=== PATIENT | female | born 2000 | race Caucasian/White ===

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

== ENCOUNTER 2022-11-09 19:55 | Emergency (ER) | payer OTHER ==
--- OUTSIDE RECORDS SUMMARY | 2022-11-09 19:57 | XMS REPORT | Continuity of Care Document ---
:2000 Author Organization [facility] t Address Replaced by [facility] [place] [address] Care Team Providers Name Role Phone Ronan Mitchell Aron Primary Care Physician Rochelle Basilio Attending Clinician Unavailable Juan Thomas MD Attending Clinician Robert Tong MD Attending Clinician ROBERT TONG Attending Clinician Unavailable JUAN THOMAS Attending Clinician Unavailable Doctor Unassigned, [place] Attending Clinician Unavailable Abraham Bean MD Attending Clinician ABRAHAM BEAN Attending Clinician Unavailable JUAN THOMAS Admitting Clinician Unavailable Payers Payer Name Policy Type Policy Number Effective Date Expiration Date [facility] [id number] 2020 [facility] [employer] 00:00:00 [employer] [facility] Problems Condition Condition Condition Status Onset Resolution Last Treating Co mments Source Name Details Category Date Date Treatment Clinician Date Brain cyst Brain cyst Disease Active 2020-10 U nivers 11-18 ity of 00:00: [place] 00 Medical Branch 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 [place] of headache, [place], [place] not s, not intractabl intractabl e e 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, Spiri t bilateral - [facility] Allergies, Adverse Reactions, Alerts Allergy Allergy Status Severity Reaction(s) Onset Inactive Treating Comm ents Source Name Type Date Date Clinician NO KNOWN Drug Active Univers ALLERGIE Class ity of S [facility] Social History Social Habit Start Date Stop Date Quantity Comments Source History of Common Spirit - Tobacco Use [facility] Sex Assigned At Common Sp nadeem - [facility] Exposure to Not sure [facility] SARS-CoV-2 [facility] (event) [place] Alcohol intake 2021-10-16 2021-10-16 Ex-drinker [facility] 00:00:00 00:00:00 (finding) [facility] Tobacco use and 2021-06-15 2021-06-15 Current user Univers ity of exposure 00:00:00 00:00:00 [facility] Smoking Status Start Date Stop Date Source Never Smoker [facility] Medications Ordered Filled Start Stop Current Ordering Indication Dosage Frequency Signature Comments Components Source Medication Medication Date Date Medication? Clinician (SIG) Name Name Rodrigo- Yes [id number] 1{capsu Take 1 Univers Acetaminoph 5-13 le} capsule by it y of en-Caff 00:00: mouth 2 [place] (FIORICET) 00 (two) Medical 50-300-40 times Branch mg per daily as capsule needed for Pain (scale 4-6). FIORICET 2020-10 Yes [id number] 1{capsu Take 1 Univers 50-300-40 2-30 le} capsule by ity of mg per 00:00: mouth 2 [place] capsule 00 (two) Medical times Branch daily as needed for Pain (scale 4-6). FIORICET 2020-10- No [id number] 1{capsu Take 1 Univers 50-300-40 2-30 05-13 le} capsule by ity of mg per 00:00: 00:00 mouth 2 [place] capsule 00 :00 (two) Medical times Branch daily as needed for Pain (scale 4-6). amitriptyli 2020-10 Yes 10mg Take 1 Univers ne 10 mg 0-26 tablet by ity of tablet 00:00: mouth at [place] 00 bedtime. Medical Branch Butalbital- 2020-10 Yes [id number] 1{capsu Take 1 Univers Acetaminoph 0-26 le} capsule by it y of en-Caff 00:00: mouth 2 [place] (FIORICET) 00 (two) Medical 50-300-40 times Branch mg per daily as capsule needed for Pain (scale 4-6). amitriptyli 2020-10 Yes 10mg Take 1 Univers ne 10 mg 0-26 tablet by ity of tablet 00:00: mouth at [place] 00 bedtime. Medical Branch amitriptyli 2020-10 Yes [id number] 10mg Take 1 Univers ne 10 mg 0-26 tablet by ity of tablet 00:00: mouth at [place] [address] bedtime. Medical Branch Butalbital- 2020-10- No [id number] 1{capsu Take 1 Univers Acetaminoph 0-26 12-24 le} capsule by i ty of en-Caff 00:00: 00:00 mouth 2 [place] (FIORICET) 00 :00 (two) Medical 50-300-40 times Branch mg per daily as capsule needed for Pain (scale 4-6). Drospirenon Drospirenon 2019-10 No 1{table QD Drospireno Common e-Ethinyl e-Ethinyl 2-16 t} ne-Ethinyl Spirit Estradiol Estradiol 00:00: Estradiol - [facility] 3-0.02 MG 3-0.02 MG 00 3-0.02 MG [facility] Loryna Loryna No Loryna 3-0.02 MG 3-0.02 MG 3-0.02 MG Vital Signs Vital Name Observation Time Observation Value Comments Source Systolic blood 2021-10-10 16:47:00 115 mm[Hg] Univer sity of pressure [facility] Diastolic blood 2021-10-10 16:47:00 80 mm[Hg] Unive rsity of pressure [facility] Heart rate 2021-10-10 16:47:00 98 /min [facility] Body height 2021-10-10 16:47:00 165.1 cm [facility] Body weight 2021-10-10 16:47:00 77.111 kg [facility] BMI 2021-10-10 16:47:00 28.29 kg/m2 [facility] Body mass index 2021-10-10 16:47:00 91.34 % Unive rsity of (BMI) [Percentile] [facility] Per age and sex Branch height 2020-10-05 09:40:00 68 [in_i] [facility] weight 2020-10-05 09:40:00 186.6 [lb_av] [facility] temperature 2020-10-05 09:40:00 97.8 [degF] [facility] bmi 2020-10-05 09:40:00 28.37 kg/m2 [facility] oximetry 2020-10-05 09:40:00 100 % [facility] respiratory rate 2020-10-05 09:40:00 18 /min Comm on [facility] blood pressure 2020-10-05 09:40:00 116 mm[Hg] Common [facility] - systolic [facility] blood pressure 2020-10-05 09:40:00 68 mm[Hg] Common [facility] - diastolic [facility] Procedures This patient has no known procedures. Encounters Start End Encounter Admission Attending Care Care Encounter Source Date/Time Date/Time Type Type Clinicians Facility Department ID 2021-11-15 Outpatient Chetna, STLC STLC [id number] Common 12:19:29 Rochelle [id number] [facility] 2021-11-15 Outpatient Chetna, STLMLC STLC [id number] Common 12:14:16 Rochelle [id number] [facility] 2021-11-15 Outpatient Chetna, STLMLC STLC [id number] Common 12:13:55 Rochelle [id number] [facility] 2022-03-02 2022-03-02 Juan Lyons [facility] [id number] Univers 00:00:00 00:00:00 SPECIALTY [id number] [id number] [phone] [place] meredith EDDY [address] [place] [address] 2021-10-13 2021-10-13 Juan Lyons CTMABEL [id number] Univers 00:00:00 00:00:00 SPECIALTY [id number] [id number] [id number] [place] meredith EDDY [address] [place] [address] 2021-10-10 2021-10-10 Office BRUNO Tong [id number] Univers 11:00:00 13:58:05 Visit [facility] [id number] it y of [id number] [id number] [address] OFFICE BUILDING 2021-10-10 2021-10-10 Outpatient R ROBERT TONG [facility] [id number] Univers 11:00:00 13:58:05 AIXAROBERT REYES dang [facility] 2021-10-10 2021-10-10 Outpatient R ROBERT TONG [facility] [id number] Univers 11:00:00 11:00:00 AIXA ROBERTFRANCIA leong [facility] 2021-09-18 2021-09-18 Outpatient R JUAN THOMAS [facility] [id number] Univers 13:00:00 13:58:08 ity [facility] 2021-09-18 2021-09-18 Office Juan Thomas [facility] [id number] Univers 12:44:20 13:58:08 Visit SPECIALTY [id number] it[place] of [id number] [id number] [place] meredith EDDY [address] [place] [address] 2021-08-28 2021-08-28 Outpatient R JUAN THOMAS [facility] [id number] Univers 14:56:42 23:59:00 ity of [facility] 2021-08-28 2021-08-28 Hospital Juan Thomas [facility] [id number] Univers 14:56:42 23:59:00 Encounter [place] [id number] ity [facility] [id number] [place] [facility] [id number] [facility] 804 [place] 2021-08-28 2021-08-28 Orders Doctor ARELY [id number] Univers 00:00:00 00:00:00 Only Unassigned, CHRISTINA [id number] ity of [facility] [id number] [place] as [phone] [facility] 009 [place] 2021-08-16 2021-08-16 Orders Doctor ARELY [id number] Univers 00:00:00 00:00:00 Only Unassigned, CHRISTINA [id number] ity of [facility] [id number] [place] as [id number] [facility] 009 [place] 2021-08-15 2021-08-15 Office Juan Thomas [facility] [id number] Univers 12:20:44 13:57:56 Visit SPECIALTY [id number] ity of [facility] [id number] [facility] AT [phone] [place] kamranhakeem [place] 950782 [facility] 2021-08-15 2021-08-15 Outpatient R JUAN THOMAS [facility] [id number] Univers 12:30:00 12:30:00 ity of [facility] 2021-06-15 2021-06-15 Office KRISTINA Bean [id number] Univers 16:16:01 16:40:26 Visit Touka Y [id number] it y of [facility] [id number] Barry as BANK [id number] [facility] BLDG. 136 [place] 2021-06-15 2021-06-15 Outpatient R VIKAS [facility] [id number] Univers 14:30:00 14:30:00 ABRAHAM leong [facility] 2020-10-10 2020-10-10 (TEL) [facility] [id number] Co mmon 00:00:00 00:00:00 [facility] 2020-10-05 2020-10-05 PREV VISIT [facility] [id number] Common 00:00:00 00:00:00 NEW AGE [facility] Results This patient has no known results.
[2022-11-09 20:46] LABS: Urine Blood Trace-lysed (Negative); Urine Glucose Negative (Negative); Urine Protein Negative (Negative); Urine Specific Gravity >=1.030 (1.005-1.030); Urine pH 5.5 (5.0-7.0)
[2022-11-09 20:58] LABS: Urine Bacteria 20-50 /HPF (<20); Urine Mucus 4+ /HPF (None Seen)
[2022-11-09 21:26] LABS: Urine Specific Gravity/Preg >1.030 (1.005-1.030)
[2022-11-09] MEDS ORDERED: ONDANSETRON 4 MG/2 ML VIAL ONE (21:32)
[2022-11-09] MEDS ORDERED: FAMOTIDINE 20 MG/2 ML VIAL IV ONE (21:33)
[2022-11-09] MEDS ORDERED: NA CHLORIDE 0.9% 1,000 ML ONE (21:33)
[2022-11-09 21:57] LABS: Absolute Lymphocytes (CBC) 1.7 K/uL (0.7-4.9); Hematocrit 36.5 % (36.0-45.0); Lymphocytes % 13.2 % (15.3-44.8); MCV 90.6 fL (80-100); MPV 7.4 fL (7.6-11.3); RBC Red Blood Cell Count 4.03 M/uL (3.86-4.86)
[2022-11-09 22:11] LABS: Potassium 3.9 mmol/L (3.5-5.1)
--- NOTE | 2022-11-10 00:20 | EDPHYS ---
Physician Documentation [facility] Name: Colette Sandhu Age: 21 yrs Sex: Female : 2000 Arrival Date: 11/09/2022 Time: 19:57 Bed 7 Private MD: ED Physician Fabio Frazier HPI: 11/09 20:20 This 21 yrs old Female presents to ER via Ambulatory with complaints of Nausea/Vomiting.cp 20:20 The patient presents to the emergency department with nausea, that is moderate, cp vomiting, that is intermittent, described as bilious. Onset: The symptoms/episode began/occurred last month. Possible causes: unknown. Associated signs and symptoms: Pertinent positives: anorexia, Pertinent negatives: abdominal pain, fever, vaginal bleeding. Severity of symptoms: in the emergency department the symptoms are unchanged despite home interventions. 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 Flu vaccine is not up to date. - Social history:: Smoking status: Patient denies any tobacco usage or history of. Patient/guardian denies using alcohol, street drugs. ROS: 20:25 Constitutional: Negative for body aches, chills, fever, poor PO intake. cp 20:25 Eyes: Negative for injury, pain, redness, and discharge. cp 20:25 ENT: Negative for drainage from ear(s), ear pain, sore throat. 20:25 Cardiovascular: Negative for chest pain, palpitations. 20:25 Respiratory: Negative for cough, shortness of breath, wheezing. 20:25 Abdomen/GI: Positive for nausea, vomiting, Negative for abdominal pain, diarrhea, constipation, anorexia, hematemesis. 20:25 : Negative for pelvic pain, vaginal bleeding, vaginal discharge. 20:25 Neuro: Negative for altered mental status, dizziness, headache, weakness. 20:25 All other systems are negative. Exam: 20:30 Constitutional: The patient appears in no acute distress, alert, awake, non-toxic, well cp developed, well nourished. 20:30 Head/Face: Normocephalic, atraumatic. cp 20:30 Eyes: Periorbital structures: appear normal, Conjunctiva: normal, no exudate, no injection, Sclera: no appreciated abnormality, Lids and lashes: appear normal, bilaterally. 20:30 ENT: External ear(s): are unremarkable, Nose: is normal, Mouth: Lips: moist, Oral mucosa: moist, Posterior pharynx: Airway: no evidence of obstruction, patent. 20:30 Chest/axilla: Inspection: normal. 20:30 Cardiovascular: Rate: normal, Rhythm: regular. 20:30 Respiratory: the patient does not display signs of respiratory distress, Respirations: normal, no use of accessory muscles, no retractions, labored breathing, is not present, Breath sounds: are clear throughout, no decreased breath sounds, no stridor, no wheezing. 20:30 Abdomen/GI: Inspection: abdomen appears normal, Bowel sounds: active, all quadrants, Palpation: abdomen is soft and non-tender, in all quadrants. 20:30 Back: pain, is absent, ROM is normal. 20:30 Neuro: Orientation: to person, place \T\ time. Mentation: is normal. Vital Signs: 20:01 BP 113 / 69; Pulse 83; Resp 17 S; Temp 98.5(O); Pulse Ox 100% on R/A; Weight 72.57 kg lg3 (R); Height 5 ft. 6 in. (167.64 cm) (R); Pain 6/10; 20:36 BP 107 / 59 Supine; Pulse 80; Pulse Ox 100% on R/A; aa9 20:36 BP 107 / 70 Sitting; Pulse 82; Pulse Ox 100% on R/A; aa9 20:36 BP 106 / 71 Standing; Pulse 93; Pulse Ox 100% on R/A; aa9 11/10 00:30 BP 104 / 75; Pulse 83; Resp 18; Temp 98; Pulse Ox 100% on R/A; Pain 0/10; pf1 11/09 20:01 Body Mass Index 25.82 (72.57 kg, 167.64 cm) lg3 MDM: 11/09 20:01 Patient medically screened. [facility] 11/10 00:15 Data reviewed: vital signs, nurses notes, lab test result(s), radiologic studies, cp ultrasound. 00:15 Differential diagnosis: Nonspecific abd pain, gastritis, pancreatitis, appendicitis, cp viral gastroenteritis, gastroenteritis, . I considered the following discharge prescriptions or medication management in the emergency department Medications were administered in the Emergency Department. See MAR. Counseling: I had a detailed discussion with the patient and/or guardian regarding: the historical points, exam findings, and any diagnostic results supporting the discharge/admit diagnosis, lab results, radiology results, the need for outpatient follow up, an OB/Gyne specialist, to return to the emergency department if symptoms worsen or persist or if there are any questions or concerns that arise at home. Response to treatment: the patient's symptoms have markedly improved after treatment, VSS. Nausea markedly improved. Patient tolerating po fluids, and as a result, I will discharge patient. 11/09 20:16 Order name: Urine Microscopic Only; Complete Time: 21:01 11/09 22:20 Interpretation: Normal except: UWBC 10-20; URBC 5-10; UBACT 20-50; MUCUS 4+; AARON Cx 1+. 11/09 20:47 Order name: Urine Dipstick-Ancillary; Complete Time: 20:53 EDWV 11/09 21:01 Order name: Urine Culture EDWV 11/09 21:04 Order name: Abo/rh Typing; Complete Time: 22:20 11/09 21:04 Order name: Basic Metabolic Panel; Complete Time: 23:31 11/09 22:20 Interpretation: Normal except: CRE 0.54. 11/09 21:04 Order name: CBC with Diff; Complete Time: 22:20 11/09 22:20 Interpretation: Normal except: WBC 12.60; MPV 7.4; SHERON% 81.3; LYM% 13.2; NEUT A 10.3. 11/09 21:04 Order name: Quantitative Hcg; Complete Time: 23:31 11/09 23:31 Interpretation: HCGQ [id number]; Reviewed. 11/09 21:22 Order name: Urine --Ancillary (enter results); Complete Time: 22:20 wm 11/09 23:16 Order name: OB Limited EDWV 11/09 20:16 Order name: Urine Dipstick-Ancillary (obtain specimen); Complete Time: 20:46 11/09 20:16 Order name: Urine Test (obtain specimen); Complete Time: 20:46 cp 11/09 20:16 Order name: Orthostatics; Complete Time: 20:36 cp 11/09 21:04 Order name: IV Saline Lock; Complete Time: 21:56 cp 11/09 21:04 Order name: Labs collected and sent; Complete Time: 21:56 cp 11/09 21:04 Order name: NPO; Complete Time: 21:56 cp Administered Medications: 11/09 21:45 Drug: NS 0.9% 1000 ml Route: IV; Rate: 1 bolus; Site: right antecubital; pf1 22:45 Follow up: IV Status: Completed infusion; IV Intake: 1000ml pf1 21:45 Drug: Zofran (Ondansetron) 4 mg Route: IVP; Site: right antecubital; pf1 22:45 Follow up: Response: Nausea is decreased pf1 21:45 Drug: Pepcid (famotidine) 20 mg Route: IVP; Site: right antecubital; pf1 22:45 Follow up: Response: No adverse reaction; Marked relief of symptoms pf1 11/10 00:20 Drug: Macrobid (nitrofurantoin) 100 mg Route: PO; pf1 00:32 Follow up: Response: No adverse reaction pf1 Disposition Summary: 11/10/22 00:19 Discharge Ordered Location: Home cp Problem: new cp Symptoms: have improved cp Condition: Stable cp Diagnosis - Infections of other parts of urinary tract in , first trimester cp - related conditions, unspecified, first trimester cp - Nausea with vomiting, unspecified cp Followup: cp - With: Ander Parson MD - When: 1 week - Reason: Recheck today's complaints Discharge Instructions: - Discharge Summary Sheet cp - Care cp - Ultrasound cp - First Trimester of cp - and Urinary Tract Infection cp - Form - Return To Work pf1 Forms: - Medication Reconciliation Form cp - Thank You Letter cp - Antibiotic Education cp - Prescription Opioid Use cp - Family Work Release pf1 Prescriptions: - 147-iron gluc-folic 13 mg iron- 1 mg Oral tablet - take 1 tablet by ORAL route once daily; 60 tablet; Refills: 0, Product cp Selection Permitted - Zofran 4 mg Oral Tablet - take 1 tablet by ORAL route every 12 hours As needed; 20 tablet; Refills: 0, cp Product Selection Permitted - Macrobid 100 mg Oral Capsule - take 1 capsule by ORAL route every 12 hours for 7 days; 14 capsule; Refills: 0, cp Product Selection Permitted 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 cp cp 23:16 21:45 Transvaginal Ob+US.RAD.BRZ ordered. EDMS EDMS
--- NOTE | 2022-11-10 00:20 | ER ---
Nurse's Notes [facility] Name: Colette Sandhu Age: 21 yrs Sex: Female : 2000 Arrival Date: 11/09/2022 Time: 19:57 Bed 7 Private MD: Diagnosis: Infections of other parts of urinary tract in , first trimester; related conditions, unspecified, first trimester;Nausea with vomiting, unspecified Presentation: 11/09 20:01 Chief complaint: Patient states: i have been vomiting on and off since middle of lg3 September. now im getting lightheaded and dizzy. Coronavirus screen: Client denies travel out of the [place] in the last 14 days. At this time, the client does not indicate any symptoms associated with coronavirus-19. Ebola Screen: No symptoms or risks identified at this time. Initial Sepsis Screen: Does the patient meet any 2 criteria? No. Patient's initial sepsis screen is negative. Does the patient have a suspected source of infection? No. Patient's initial sepsis screen is negative. Risk Assessment: Do you want to hurt yourself or someone else? Patient reports no desire to harm self or others. Onset of symptoms is unknown. 20:01 Method Of Arrival: Ambulatory lg3 20:01 Acuity: ANDREEA 3 lg3 Triage Assessment: 20:03 General: Appears in no apparent distress. comfortable, Behavior is calm, cooperative. lg3 Pain: Complains of pain in abdomen Pain at worst was 6 out of 10 on a pain scale. Is intermittent, episodic. EENT: No deficits noted. No signs and/or symptoms were reported regarding the EENT system. Neuro: No deficits noted. Brock Agitation-Sedation Scale (RASS): 0 - Alert and Calm Level of Consciousness is awake, alert, obeys commands, Oriented to person, place, time, situation. Cardiovascular: No deficits noted. Denies chest pain, shortness of breath, Capillary refill < 3 seconds Clubbing of nail beds is absent JVD is absent Patient's skin is warm and dry. Respiratory: No deficits noted. Airway is patent Trachea midline Respiratory effort is even, unlabored, Respiratory pattern is regular, symmetrical. GI: Abdomen is flat, non-distended, Reports lower abdominal pain, upper abdominal pain, cramping, intolerance of fluids, intolerance of food, nausea, vomiting. : No deficits noted. No signs and/or symptoms were reported regarding the genitourinary system. Derm: No deficits noted. No signs and/or symptoms reported regarding the dermatologic system. Skin is intact, is healthy with good turgor, Skin is dry, Skin is normal. Musculoskeletal: No deficits noted. Circulation, motion, and sensation intact. Range of motion: intact in all extremities. 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 Flu vaccine is not up to date. - Social history:: Smoking status: Patient denies any tobacco usage or history of. Patient/guardian denies using alcohol, street drugs. Screenin:38 Abuse screen: Denies threats or abuse. Denies injuries from another. Nutritional aa9 screening: Has had N/V for 3 or more days. Tuberculosis screening: No symptoms or risk factors identified. 21:00 [facility] ED Fall Risk Assessment (Adult) History of falling in the last 3 months, pf1 including since admission No falls in past 3 months (0 pts) Confusion or Disorientation No (0 pts) Intoxicated or Sedated No (0 pts) Impaired Gait No (0 pts) Mobility Assist Device Used No (0 pt) Altered Elimination No (0 pt) Score/Fall Risk Level 0 - 2 = Low Risk Oriented to surroundings, Maintained a safe environment, Educated pt \T\ family on fall prevention, incl call for assistance when getting out of bed, Assessed \T\ reinforced patient's understanding of fall precautions, Provided non-skid footwear, Hourly rounding (assess needs \T\ fall precautionary measures) done, Used ambulatory aids as needed (educated on \T\ assisted with), Used gait belt as appropriate. Assessment: 20:37 General: Appears in no apparent distress. comfortable, Behavior is calm, cooperative, aa9 appropriate for age. Pain: Denies pain. Neuro: Level of Consciousness is awake, alert, obeys commands, Oriented to person, place, time, situation. Cardiovascular: Patient's skin is warm and dry. Respiratory: Airway is patent Respiratory effort is even, unlabored. GI: Reports nausea, vomiting, Patient currently denies abdominal pain, diarrhea. : No signs and/or symptoms were reported regarding the genitourinary system. EENT: No signs and/or symptoms were reported regarding the EENT system. Derm: Skin is intact, is healthy with good turgor. Musculoskeletal: No signs and/or symptoms reported regarding the musculoskeletal system. 23:00 Reassessment: Patient appears in no apparent distress at this time. Patient and/or aa9 family updated on plan of care and expected duration. Pain level reassessed. Patient is alert, oriented x 3, equal unlabored respirations, skin warm/dry/pink. General: Appears in no apparent distress. comfortable. Pain: Denies pain. Vital Signs: 20:01 BP 113 / 69; Pulse 83; Resp 17 S; Temp 98.5(O); Pulse Ox 100% on R/A; Weight 72.57 kg lg3 (R); Height 5 ft. 6 in. (167.64 cm) (R); Pain 6/10; 20:36 BP 107 / 59 Supine; Pulse 80; Pulse Ox 100% on R/A; aa9 20:36 BP 107 / 70 Sitting; Pulse 82; Pulse Ox 100% on R/A; aa9 20:36 BP 106 / 71 Standing; Pulse 93; Pulse Ox 100% on R/A; aa9 11/10 00:30 BP 104 / 75; Pulse 83; Resp 18; Temp 98; Pulse Ox 100% on R/A; Pain 0/10; pf1 11/09 20:01 Body Mass Index 25.82 (72.57 kg, 167.64 cm) lg3 ED Course: 11/09 19:57 Patient arrived in ED. [id number] 20:00 Fabio Macias PA is PHCP. cp 20:00 Fabio Frazier MD is Attending Physician. cp 20:03 Triage completed. lg3 20:03 Arm band placed on right wrist. lg3 20:38 Patient has correct armband on for positive identification. Bed in low position. Call aa9 light in reach. Adult w/ patient. 20:46 Urine Microscopic Only Sent. aa9 21:45 No provider procedures requiring assistance completed. Inserted saline lock: 20 gauge pf1 in right antecubital area, using aseptic technique. Blood collected. 21:56 Abo/rh Typing Sent. pf1 21:56 Basic Metabolic Panel Sent. pf1 21:56 CBC with Diff Sent. pf1 21:56 Quantitative Hcg Sent. pf1 22:36 Kathi domingo, ESTER is Primary Nurse. pf1 23:16 OB Limited In Process Unspecified. EDMS 11/10 00:18 Ander Parson MD is Referral Physician. cp 00:41 IV discontinued, intact, bleeding controlled, No redness/swelling at site. Pressure pf1 dressing applied. Administered Medications: 11/09 21:45 Drug: NS 0.9% 1000 ml Route: IV; Rate: 1 bolus; Site: right antecubital; pf1 22:45 Follow up: IV Status: Completed infusion; IV Intake: 1000ml pf1 21:45 Drug: Zofran (Ondansetron) 4 mg Route: IVP; Site: right antecubital; pf1 22:45 Follow up: Response: Nausea is decreased pf1 21:45 Drug: Pepcid (famotidine) 20 mg Route: IVP; Site: right antecubital; pf1 22:45 Follow up: Response: No adverse reaction; Marked relief of symptoms pf1 11/10 00:20 Drug: Macrobid (nitrofurantoin) 100 mg Route: PO; pf1 00:32 Follow up: Response: No adverse reaction pf1 Medication: 00:42 VIS not applicable for this client. pf1 Intake: 11/09 22:45 IV: 1000ml; Total: 1000ml. pf1 Outcome: 11/10 00:19 Discharge ordered by . cp 00:41 Discharged to home ambulatory, with family. pf1 00:41 Condition: improved 00:41 Discharge instructions given to patient, family, Instructed on discharge instructions, follow up and referral plans. Demonstrated understanding of instructions, follow-up care, Prescriptions given X 3. 00:42 Patient left the ED. pf1 Signatures: Dispatcher [employer] EDDE Fabio Macias PA PA cp Gibson, Lacie, RN RN lg3 Sayra Bullock jj6 Jeanne Beal RN RN aa9 Kathi domingo, RN RN pf1
[2022-11-10] MEDS ORDERED: NITROFURAN MACRO 100 MG CAP PO ONE (00:26)
[2022-11-10 01:32] VITALS: O2SAT 100
[2022-11-10 01:39] VITALS: BP 104/75; TEMP 98
--- NOTE | 2022-11-11 12:28 | RAD REPORT ---
EXAM DESCRIPTION: US - OB Limited - 11/09/2022 11:14 pm CLINICAL HISTORY: NAUSEA/VOMITING. Last menstrual period 08/21/2022. Estimated gestational age by LMP is 11 weeks and 1 days. COMPARISON: None. TECHNIQUE: Real-time grayscale, color Doppler, and spectral Doppler images of the pelvis was obtaine d utilizing transabdominal and transvaginal technique. FINDINGS: Uterus: Measures 8 x 10.5 x 11.6 cm. Dichorionic diamniotic twin gestation. Fetus A: Estimated heart rate of 140 bmp. Amorphous pole is visualized. No yolk sac is vi sualized. Subjectively normal amount of amniotic fluid. Small subchorionic hemorrhage adjacent to ges tational sac A measuring 0.6 cm. Wesson-rump length: 1.36 cm, corresponding to a gestational age of 7 weeks 4 days. Fetus B: Estimated heart rate of 159 bmp. pole and is visualized. Posterior placenta. Sub jectively normal amount of amniotic fluid. Wesson-rump length: 6.52 cm, corresponding to a gestational age of 12 weeks 6 days. Right ovary: 2.9 x 2.2 x 3.1 cm (volume 10 mL). Normal arterial flow. No concerning lesions. Left ovary: 1.9 x 1.4 x 1.3 cm (volume 1.8 mL). Normal arterial flow. No concerning lesions. Cul-de-sac: No free fluid. IMPRESSION: 1. Dichorionic diamniotic twin gestation with asymmetric growth (fetus B larger than fetus A). 2. Estimated gestational age based on fetus B of 12 weeks and 6 days (YOBANY 05/19/2023). 3. Small subchorionic hemorrhage adjacent to the gestational sac of fetus A. Electronically signed by: Leilani Gustafson MD 11/09/2022 11:41 PM NURSE UNIT MANAGER Due to temporary technical issues with the PACS/Fluency reporting system, reports are being signed by the in house radiologists without review as a courtesy to insure prompt reporting. The interpreting radiologist is fully responsible for the content of the report.
== END 2022-11-10 00:42 | disposition home or self-care (01) ==
LOC: ER 19:55
DX: O23.41 Unspecified infection of urinary tract in pregnancy, first trimester (principal); O21.8 Other vomiting complicating pregnancy; N39.0 Urinary tract infection, site not specified; Z3A.12 12 weeks gestation of pregnancy
CPT/HCPCS: 96361; 87088; 85025; 87086; 80048; 36415; 86900; 81025; 86901; 84702; 76815; 96375; 96374; 99284; J7030; J2405; 81003; 81015